=== PATIENT | male | born 1955 | race Hispanic/Latino ===

== ENCOUNTER 2017-11-23 20:09 | Emergency (ER) | payer OTHER ==
[~2017-11-23] VITALS: Ht 152.4 cm; Wt 67.8 kg
[2017-11-23 23:31] VITALS: BP 143/65
== END 2017-11-23 23:31 | disposition home or self-care (01) ==
LOC: EME 20:09
DX: S61.210A Laceration without foreign body of right index finger without damage to nail, initial encounter (principal); S61.411A Laceration without foreign body of right hand, initial encounter; W26.8XXA Contact with other sharp object(s), not elsewhere classified, initial encounter; Y99.0 Civilian activity done for income or pay; Z23 Encounter for immunization
CPT/HCPCS: 73130; 99281; 99284

== ENCOUNTER 2018-01-17 10:45 | Inpatient (IN) | payer OTHER ==
[~2018-01-17] VITALS: Ht 167.6 cm; Wt 67.5 kg
[2018-01-26] MEDS ORDERED: LEVOTHYROXINE100 MCG PO (15:41)
[2018-01-26] MEDS ORDERED: FAMOTIDINE40 MG PO ×2 (15:42→15:43)
[2018-01-26] MEDS ORDERED: PRAVACHOL80 MG PO (15:43)
[2018-01-26] MEDS ORDERED: HYDROCHLOROTH12.5 M3 PO (15:44)
[2018-01-26] MEDS ORDERED: LIDODERM 5% P1 PATCH TD (15:45)
[2018-01-26] MEDS ORDERED: MONTELUKAST SOD10 MG PO (15:45)
[2018-01-26] MEDS ORDERED: VITAMIN D2000 UNIT PO (15:46)
[2018-01-26] MEDS ORDERED: AVAGE30 GM TP (15:47)
[2018-01-26] MEDS ORDERED: METRO GEL 1%60 GM TP (15:47)
[2018-01-31 06:36] VITALS: BP 141/83
[2018-01-31] MEDS ORDERED: ENDOCET 5-3251 EACH PO (10:26)
[2018-01-31] MEDS ORDERED: DOCUSATE SODIU100 MG PO (10:26)
[2018-01-31 13:16] VITALS: BP 132/77
[2018-01-31 16:02] VITALS: BP 122/69
[2018-01-31 19:35] VITALS: BP 119/65
[2018-01-31 23:36] VITALS: BP 135/70
[2018-02-01] VITALS (7 sets, daily range): BP systolic 95–145; BP diastolic 62–75
[2018-02-01 06:15] LABS: HEMATOCRIT 33.7 % (38.0-50.0); MCH 29.1 PG (29.0-34.0); MCHC 33.2 G/DL (30.0-36.0); MCV 87.5 FL (86-99); PLATELET COUNT 212 K/uL (156-360); RBC DIS.WIDTH-SD 41.6 % (39-53); RED BLOOD COUNT 3.85 M/uL (4.00-5.50); WHITE BLOOD COUNT 8.8 K/uL (4.1-10.2)
[2018-02-01 06:18] LABS: HEMOGLOBIN 11.2 G/DL (12.5-16.6)
[2018-02-01 06:37] LABS: CHLORIDE 103 MEQ/L (99-109); CREATININE 1.1 MG/DL (0.6-1.3); GFR ESTIMATE (CALCULATED) > 59 mL/min/ (58.99-99999); GLUCOSE 112 mg/dL (70-99); POTASSIUM 4.3 MEQ/L (3.7-5.4); SODIUM 138 MEQ/L (136-147); UREA NITROGEN (BUN) 13 mg/dL (9-23)
[2018-02-02 03:31] VITALS: BP 118/69
[2018-02-02 08:00] VITALS: BP 125/73
[2018-02-02 11:15] VITALS: BP 130/75
[2018-02-02 15:20] VITALS: BP 139/88
[2018-02-02 22:40] VITALS: BP 143/85
[2018-02-03 07:35] VITALS: BP 110/66
[2018-02-03 12:14] VITALS: BP 131/80
== END 2018-02-03 17:26 | disposition home or self-care (01) | DRG 658 ==
LOC: 2SOUTH 10:45 → ENRESERV 01-30 21:08 → 2SOUTH 01-31 06:08 → ENRESERV 01-31 07:54 → 5EAST 01-31 13:02 → 2SOUTH 01-31 14:04 → 5EAST 02-03 17:26
PROVIDERS: Urology
PROC: 0TT10ZZ Resection of Left Kidney, Open Approach (ICD-10-PCS; principal; 2018-01-31)
DX: C64.2 Malignant neoplasm of left kidney, except renal pelvis (principal); E03.9 Hypothyroidism, unspecified; I10 Essential (primary) hypertension; E06.3 Autoimmune thyroiditis; K21.9 Gastro-esophageal reflux disease without esophagitis; J30.9 Allergic rhinitis, unspecified
CPT/HCPCS: 80048; 85027; 88307; 94799; J0690; J1170; J1644; J1885; J2250; J2405; J2710; J7120; Q0175

== ENCOUNTER → 2018-01-22 | Outpatient (CLI) | payer OTHER | END | disposition home or self-care (01) | LOC: CDC 11:36 | DX: Z01.810 Encounter for preprocedural cardiovascular examination (principal); N28.89 Other specified disorders of kidney and ureter; R94.31 Abnormal electrocardiogram [ECG] [EKG] | CPT/HCPCS: 93000 ==

== ENCOUNTER 2018-02-05 16:26 | Emergency (ER) | payer OTHER ==
[~2018-02-05] VITALS: Ht 167.6 cm; Wt 65.0 kg
[~2018-02-05 16:26] MED LIST: AVAGE30 GM TP; DOCUSATE SODIU100 MG PO; ENDOCET 5-3251 EACH PO; FAMOTIDINE40 MG PO; HYDROCHLOROTH12.5 M3 PO; LEVOTHYROXINE100 MCG PO; LIDODERM 5% P1 PATCH TD; METRO GEL 1%60 GM TP; MONTELUKAST SOD10 MG PO; PRAVACHOL80 MG PO; VITAMIN D2000 UNIT PO
[2018-02-05 19:15] LABS: INTER. NORMALIZED RATIO 1.1
[2018-02-05 19:16] LABS: HEMOGLOBIN 13.8 G/DL (12.5-16.6); MCH 28.8 PG (29.0-34.0); MCHC 33.7 G/DL (30.0-36.0); MCV 85.6 FL (86-99); PLATELET COUNT 311 K/uL (156-360); RBC DIS.WIDTH-CV 12.4 % (11.8-14.6); RBC DIS.WIDTH-SD 38.8 % (39-53); RED BLOOD COUNT 4.79 M/uL (4.00-5.50); WHITE BLOOD COUNT 8.5 K/uL (4.1-10.2)
[2018-02-05 19:18] LABS: PTT 31.8 SEC (25-37)
[2018-02-05 19:27] LABS: CHLORIDE 97 mEq/L (99-109); POTASSIUM 4.4 mEq/L (3.7-5.4); SODIUM 133 mEq/L (136-147)
[2018-02-05 19:28] LABS: GLUCOSE 98 mg/dL (70-99)
[2018-02-05 19:32] LABS: GFR ESTIMATE (CALCULATED) > 59 mL/min/ (58.99-99999)
[2018-02-05 19:33] LABS: UREA NITROGEN (BUN) 19 mg/dL (9-23)
[2018-02-05] MEDS ORDERED: XARELTO15 MG PO (20:21)
[2018-02-05 21:03] VITALS: BP 126/89
== END 2018-02-05 21:04 | disposition home or self-care (01) ==
LOC: EME 16:26
PROVIDERS: Physician Assistant
DX: I82.442 Acute embolism and thrombosis of left tibial vein (principal); Z98.890 Other specified postprocedural states; Z90.5 Acquired absence of kidney; Z85.528 Personal history of other malignant neoplasm of kidney; E03.9 Hypothyroidism, unspecified; I10 Essential (primary) hypertension
CPT/HCPCS: 80048; 85027; 85610; 85730; 93971; 99281; 99284